=== PATIENT | male | born 1980 ===

== ENCOUNTER 2020-09-06 17:01 | Emergency (ER) | payer OTHER ==
--- NOTE | 2020-09-06 18:24 | CR ---
PROCEDURE INFORMATION: Exam: XR Right Ribs with PA Chest Exam date and time: 09/06/2020 5:47 PM Age: 40 years old Clinical indication: Other: Right side rib pain; Additional info: Pain and contusion TECHNIQUE: Imaging protocol: XR Right ribs with PA chest. Views: 3 views COMPARISON: No relevant prior studies available. FINDINGS: Lungs: The pulmonary vasculature is not engorged. The lungs are normal. Pleural spaces: There are no pleural effusions present. There is no evidence of pneumothorax. Heart/Mediastinum: The heart is not enlarged. Bones/joints: The ribs are normal. Marginal osteophytes are noted at multiple levels in the spine. IMPRESSION: No acute abnormality.
--- NOTE | 2020-09-06 18:32 | EDM.PDOC ---
ED HPI GENERAL MEDICAL PROBLEM - General Chief Complaint: Chest Pain Stated Complaint: INJURY TO RIGHT SIDE OF RIBS Time Seen by Provider: 09/06/20 17:50 Source of Information: Reports: Patient, RN, RN Notes Reviewed History Limitations: Reports: No Limitations - History of Present Illness INITIAL COMMENTS - FREE TEXT/NARRATIVE: Jeffrey is a 40 y/o male who presents to the ED via personal vehicle with complaints of right lateral anterior chest pain. The patient reports he was completing field maneuvers, including wall climbs, earlier this afternoon at [facility] when he struck his chest hard off of the top of a wall. The patient states he is concerned he broke his ribs as he is experiencing pain with deep breathing. He denies palpitations or shortness of breath. He has taken no medications for his symptoms. Right Chest Pain Score (Numeric/FACES): 8 - Related Data Allergies Allergy/AdvReac Type Severity Reaction Status Date / Time No Known Allergies Allergy Verified 09/06/20 17:21 Home Meds: Home Meds . [No Known Home Meds] 09/06/20 [History] Past Medical History - Past Health History Medical/Surgical History: Denies Medical/Surgical History Musculoskeletal History: Reports: Fracture Other Musculoskeletal History: right hand fratures Social & Family History - Tobacco Use Tobacco Use Status *Q: Never Tobacco User - Caffeine Use Caffeine Use: Reports: None - Recreational Drug Use Recreational Drug Use: No ED ROS GENERAL - Review of Systems Review Of Systems: Comprehensive ROS is negative, except as noted in HPI. ED EXAM, GENERAL - Physical Exam Exam: See Below Exam Limited By: No Limitations General Appearance: Alert, No Apparent Distress, Thin Eye Exam: Bilateral Eye: EOMI, Normal Inspection, PERRL (2mm) Ears: Normal External Exam, Hearing Grossly Normal Nose: Normal Inspection, Normal Mucosa, No Blood Throat/Mouth: Normal Inspection, Normal Lips, Normal Teeth, Normal Gums, Normal Oropharynx, Normal Voice, No Airway Compromise Head: Atraumatic, Normocephalic Neck: Normal Inspection, Supple, Non-Tender, Full Range of Motion. No: Lympha denopathy (L), Lymphadenopathy (R) Respiratory/Chest: No Respiratory Distress, Lungs Clear, Normal Breath Sounds, No Accessory Muscle Use. No: Chest Non-Tender (Tender to right anteriolateral lower thorax), Crackles, Rales, Rhonchi, Wheezing, Stridor, Retractions, Splinting Cardiovascular: Normal Peripheral Pulses, Regular Rate, Rhythm, No Edema, No Gallop, No JVD, No Murmur, No Rub Peripheral Pulses: 2+: Radial (L), Radial (R) GI/Abdominal: Normal Bowel Sounds, Soft, Non-Tender, No Distention, No Abnormal Bruit, No Mass, Pelvis Stable (Male) Exam: Deferred Rectal (Males) Exam: Deferred Back Exam: Normal Inspection, Full Range of Motion. No: Muscle Spasm, Paraspinal Tenderness, Vertebral Tenderness Extremities: Normal Inspection, Normal Range of Motion, Non-Tender, Normal Capillary Refill, No Pedal Edema Neurological: Alert, Oriented, CN II-XII Intact, Normal Cognition, Normal Gait, No Motor/Sensory Deficits Psychiatric: Normal Affect, Normal Mood Skin Exam: Warm, Dry, Intact, Normal Color, No Rash. No: Ecchymosis, Erythema, Petechiae Course - Vital Signs Last Recorded V/S: Last Vital Signs Temp 98.4 F 09/06/20 17:17 Pulse 88 09/06/20 17:17 Resp 14 09/06/20 17:17 BP 130/69 09/06/20 17:17 Pulse Ox 99 09/06/20 17:17 - Radiology Interpretation Free Text/Narrative:: [facility] Final Radiology Report Call: [phone] assistance Online chat: [email or web address] Name: JEFFREY MILIAN Age: 40Years M Date: 09/06/2020 SSN: -- : [id number] Study: CR RIBS 2V W CHEST RT Requesting Physician: Blessing Hampton Images: 3 Addl Studies: Provided Clinical History: PAIN AND CONTUSION Contrast: Contrast Medium: Contrast Amount: Contrast Method: CONFIDENTIALITY STATEMENT This report is intended only for use by the referring physician, and only in accordance with law. If you received this in error, call [phone]. Page 1 of 1 PROCEDURE INFORMATION: Exam: XR Right Ribs with PA Chest Exam date and time: 09/06/2020 5:47 PM Age: 40 years old Clinical indication: Other: Right side rib pain; Additional info: Pain and contusion TECHNIQUE: Imaging protocol: XR Right ribs with PA chest. Views: 3 views COMPARISON: No relevant prior studies available. FINDINGS: Lungs: The pulmonary vasculature is not engorged. The lungs are normal. Pleural spaces: There are no pleural effusions present. There is no evidence of pneumothorax. Heart/Mediastinum: The heart is not enlarged. Bones/joints: The ribs are normal. Marginal osteophytes are noted at multiple levels in the spine. IMPRESSION: No acute abnormality. Thank you for allowing us to participate in the care of your patient. Dictated and Authenticated by: Kenneth Méndez MD 09/06/2020 6:24 PM Central Time ([place] & [place]) - Re-Assessments/Exams Free Text/Narrative Re-Assessment/Exam: 09/06/20 Xray of ribs obtained. Findings of examination and imaging reviewed with patient. Discussed supportive cares for musculoskeletal pain with patient. Patient instructed to follow up with primary care provider regarding today's visit. Red flag signs and symptoms which would warrant reevaluation reviewed. Patient verbalized understanding and agreement with the plan of care. Departure - Departure Time of Disposition: 18:30 Disposition: Home, Self-Care 01 Condition: Good Clinical Impression: Right-sided chest wall pain Chest wall injury Qualifiers: Encounter type: initial encounter Qualified Code(s): S29.9XXA - Unspecified injury of thorax, initial encounter - Discharge Information *PRESCRIPTION DRUG MONITORING PROGRAM REVIEWED*: Not Applicable *COPY OF PRESCRIPTION DRUG MONITORING REPORT IN PATIENT EDDY: Not Applicable Instructions: Chest Wall Pain, [id number] Forms: ED Department Discharge Additional Instructions: 1.) You may take ibuprofen (Advil/Motrin) 400mg every six hours, as pain persists. You may also take acetaminophen (Tylenol) 650mg every six hours, as pain persists. You may stagger these medications so you are receiving a dose every three hours. 2.) You may apply ice to the affected area, as swelling persists; 20 minutes on every hour. 3.) Drink plenty of water to stay hydrated. 4.) Follow up with primary care provider, or return to the emergency department, with any worsening symptoms, chest pain, increasing shortness of breath, fever, or shaking chills. Sepsis Event Note (ED) - Evaluation Sepsis Screening Result: No Definite Risk
== END 2020-09-06 18:42 | disposition home or self-care (01) ==
LOC: DL.ED 17:01
DX: S29.9XXA Unspecified injury of thorax, initial encounter (principal); W22.09XA Striking against other stationary object, initial encounter
CPT/HCPCS: 71101-RT; 99283-25